=== PATIENT | female | born 1980 ===

== ENCOUNTER 2020-05-14 11:00 | Outpatient (CLI) | payer MEDICAID | END 2020-05-15 11:00 | disposition home or self-care (01) | LOC: SLR 11:00 | PROVIDERS: ATTEND Internal Medicine Critical Care Medicine | DX: G47.33 Obstructive sleep apnea (adult) (pediatric) (principal); R40.0 Somnolence; E66.1 Drug-induced obesity | CPT/HCPCS: G0399 ==